=== PATIENT | female | born 1990 | race American Indian/Alaskan Native ===

== ENCOUNTER 2019-04-11 17:56 | Emergency (ER) | payer SELFPAY ==
[2019-04-11] MEDS ORDERED: IBUPROFEN 600 MG TAB PO ONE ×2 (18:09→18:10)
[2019-04-11] MEDS ORDERED: ACETAMINOPHEN 325 MG TAB PO ONE (18:09)
--- NOTE | 2019-04-11 18:09 | Event Note ---
ED Screening Note ED Screening Note: sore throat that two days ago discomfort with swallowing she is able to tolerate PO intake and tolerate secretions nasal congestion generalized body aches occasional dry cough no v/d PMHx none no allergies to meds LNMP: a week ago This initial assessment/diagnostic orders/clinical plan/treatment(s) is/are subject to change based on patients health status, clinical progression and re- assessment by fellow clinical providers in the ED. Further treatment and workup at subsequent clinical providers discretion. Patient/guardian urged not to elope from the ED as their condition may be serious if not clinically assessed and managed. Initial orders include: rapid strep, rapid flu ibuprofen tylenol
[2019-04-11] MEDS ORDERED: ACETAMINOPHEN 325 MG TAB ONE (18:10)
[2019-04-11] MEDS ORDERED: SODIUM CHLORIDE 0.9% 1000 ML IV SOLN IV ONE (18:49)
--- NOTE | 2019-04-11 18:59 | Emergency Department Report ---
ED General Adult HPI - General Chief complaint: Sore Throat Stated complaint: FEVER,WEAKNESS,SORE THROAT Time Seen by Provider: 04/11/19 18:02 Source: patient Mode of arrival: Ambulatory Limitations: No Limitations - History of Present Illness Initial comments: 28-year-old female presents with complaint of sore throat and fever for the past 2 days. Patient denies any loss of consciousness. Patient denies any dysuria. Patient denies any vomiting. Patient states that she has not had anything to eat since Thursday. Patient states that she is been only able to keep down a minimal amount of liquids. Patient denies any hematemesis. Patient complains of body aches as well. Severity scale (0 -10): 10 - Related Data Previous Rx's Medication Instructions Recorded Last Taken Type Clindamycin [Clindamycin CAP] 300 mg PO Q8H 7 Days #21 cap 04/11/19 Unknown Rx HYDROcodone/ACETAMINOPHEN [Lortab 15 ml PO Q8HR #473 solution 04/11/19 Unknown Rx 10 mg-300 mg per 15 ML ORAL LIQ] Ibuprofen [Motrin 800 MG tab] 800 mg PO Q8HR PRN #20 tablet 04/11/19 Unknown Rx Allergies Allergy/AdvReac Type Severity Reaction Status Date / Time latex Allergy Hives Verified 04/11/19 17:59 ED Review of Systems ROS: Stated complaint: FEVER,WEAKNESS,SORE THROAT Other details as noted in HPI Constitutional: fever Eyes: denies: eye pain, eye discharge, vision change ENT: other (Sore throat) Respiratory: denies: cough, shortness of breath, wheezing Cardiovascular: denies: chest pain, palpitations Endocrine: no symptoms reported Gastrointestinal: denies: abdominal pain, nausea, diarrhea Genitourinary: denies: urgency, dysuria, discharge Musculoskeletal: denies: back pain, joint swelling, arthralgia Skin: denies: rash, lesions Neurological: denies: headache, weakness, paresthesias Psychiatric: denies: anxiety, depression Hematological/Lymphatic: denies: easy bleeding, easy bruising ED Past Medical Hx - Past Medical History Previous Medical History?: No - Surgical History Past Surgical History?: Yes Additional Surgical History: D&C - Social History Smoking Status: Never Smoker Substance Use Type: None - Medications Home Medications: Home Medications Medication Instructions Recorded Confirmed Last Taken Type Clindamycin [Clindamycin CAP] 300 mg PO Q8H 7 Days #21 cap 04/11/19 Unknown Rx HYDROcodone/ACETAMINOPHEN [Lortab 15 ml PO Q8HR #473 solution 04/11/19 Unknown Rx 10 mg-300 mg per 15 ML ORAL LIQ] Ibuprofen [Motrin 800 MG tab] 800 mg PO Q8HR PRN #20 tablet 04/11/19 Unknown Rx ED Physical Exam - General Limitations: No Limitations General appearance: alert, other (febrile; uncomfortable) - Head Head exam: Present: atraumatic, normocephalic - Eye Eye exam: Present: normal appearance - ENT ENT exam: Present: mucous membranes dry, other (bilateral tonsillar enlargement; uvula midline; no tonsillar exudate) - Neck Neck exam: Present: normal inspection. Absent: lymphadenopathy - Respiratory Respiratory exam: Present: normal lung sounds bilaterally. Absent: respiratory distress - Cardiovascular Cardiovascular Exam: Present: normal rhythm, tachycardia. Absent: systolic murmur, diastolic murmur, rubs, gallop - GI/Abdominal GI/Abdominal exam: Present: soft, normal bowel sounds. Absent: tenderness - Extremities Exam Extremities exam: Present: normal inspection - Back Exam Back exam: Present: normal inspection - Neurological Exam Neurological exam: Present: alert, oriented X3 - Psychiatric Psychiatric exam: Present: normal affect, normal mood - Skin Skin exam: Present: warm, dry, intact, normal color. Absent: rash ED Course Vital Signs 04/11/19 04/11/19 04/11/19 18:04 18:40 18:54 Temperature 102.6 F H Pulse Rate 134 H 124 H Respiratory 20 18 20 Rate Blood Pressure 119/66 O2 Sat by Pulse 100 99 Oximetry 04/11/19 04/11/19 04/11/19 19:00 19:16 19:30 Temperature Pulse Rate 124 H 116 H 119 H Respiratory 17 24 24 Rate Blood Pressure 117/70 117/69 117/69 O2 Sat by Pulse 99 Oximetry 04/11/19 04/11/19 04/11/19 19:50 20:29 20:30 Temperature Pulse Rate 115 H 118 H Respiratory 23 17 Rate Blood Pressure 119/68 113/61 O2 Sat by Pulse 98 100 99 Oximetry 04/11/19 04/11/19 04/11/19 20:48 21:00 21:16 Temperature Pulse Rate 118 H 111 H 113 H Respiratory 26 H 25 H 25 H Rate Blood Pressure 113/61 113/64 113/61 O2 Sat by Pulse 93 99 99 Oximetry 04/11/19 04/11/19 04/11/19 21:30 21:46 21:47 Temperature 99.0 F Pulse Rate 107 H 114 H Respiratory 20 24 Rate Blood Pressure 109/68 109/68 O2 Sat by Pulse 98 Oximetry ED Medical Decision Making - Lab Data Result diagrams: 04/11/19 19:00 04/11/19 19:00 - Medical Decision Making Patient received clindamycin 600 mg as well as 10 mg of Decadron while in emergency department. Patient also received a 30 cc/kg bolus of normal saline while emergency department. Patient's heart rate has improved. Patient's has a normal white count. Patient's urinalysis shows no evidence of infection. Patient CT of the neck shows no evidence of peritonsillar abscess. Patient has a chest x-ray shows no obvious evidence of acute infiltrate or consolidation. Patient to be treated as a tonsillitis with clindamycin therapy as well as Hycet therapy. Patient also likely has the presence of concomitant viral illness. Patient be discharged to follow-up with PCP. - Differential Diagnosis Viral illness; strep pharyngitis; tonsillitis; pneumonia; Critical care attestation.: If time is entered above; I have spent that time in minutes in the direct care of this critically ill patient, excluding procedure time. ED Disposition Clinical Impression: Viral illness, Tonsillitis Disposition: -01 TO HOME OR SELFCARE Is pt being admited?: No Does the pt Need Aspirin: No Condition: Stable Instructions: Tonsillitis (ED), Viral Syndrome (ED) Prescriptions: Clindamycin [Clindamycin CAP] 300 mg PO Q8H 7 Days #21 cap HYDROcodone/ACETAMINOPHEN [Lortab 10 mg-300 mg per 15 ML ORAL LIQ] 15 ml PO Q8HR #473 solution Ibuprofen [Motrin 800 MG tab] 800 mg PO Q8HR PRN #20 tablet PRN Reason: Pain, Moderate (4-6) Time of Disposition: 22:34 Print Language: DANISH
[2019-04-11 19:30] LABS: Hematocrit 34.7 % (30.3-42.9); Hemoglobin 11.4 gm/dl (10.1-14.3); Mean Corpuscular HGB Conc 33 % (30-34); Mean Corpuscular Volume 84 fl (79-97); Platelet Count 190 K/mm3 (140-440); Red Blood Count 4.13 M/mm3 (3.65-5.03); Red Cell Distribution Width 13.2 % (13.2-15.2)
[2019-04-11] MEDS ORDERED: CLINDAMYCIN 600 MG/50 mL 600 MG/50 ML BAG IV ONE (19:35)
[2019-04-11] MEDS ORDERED: dexAMETHasone 20 MG/5 ML VIAL IV ONE (19:35)
[2019-04-11 19:48] LABS: Alanine Aminotransferase 19 units/L (7-56); BUN/Creatinine Ratio 10; Blood Urea Nitrogen 7 mg/dL (7-17); Calcium 8.7 mg/dL (8.4-10.2); Hemolysis Index 0
[2019-04-11 20:13] LABS: Basophils % (Manual) 0 % (0.0-1.8); Eosinophils % (Manual) 0 % (0.0-4.3); Total Cells Counted 100
[2019-04-11 20:14] LABS: RBC Morphology Normal
--- NOTE | 2019-04-11 20:51 | Cat Scan Report ---
CT neck w con INDICATION / CLINICAL INFORMATION: 28 years Female; sore throat with fever. TECHNIQUE: Contiguous thin cut axial images obtained through the neck following IV contrast. Sagittal and eubanks l reconstructions performed by the technologist. All CT scans at this location are performed using CT dose reduction for ALARA by means of automated exposure control. COMPARISON: None available. FINDINGS: MUCOSAL SPACE: The nasopharynx, oropharynx and vallecula, oral cavity and floor of mouth, hypopharynx , and larynx are grossly normal. No evidence of abscess formation seen. Parapharyngeal and retrophary ngeal spaces are normal. LYMPH NODES: No significant adenopathy appreciated. A few borderline size lymph nodes identified, whi ch are presumably reactive. SALIVARY GLANDS: Parotid, submandibular, and visualized sublingual glands are within normal limits. THYROID GLAND: Unremarkable. PARANASAL SINUSES: Mucous retention cyst/polyps seen in both maxillary antra. The left frontal sinus is hypoplastic. SPINE: No significant abnormality of the cervical spine appreciated. Minimal scoliosis of the cervico thoracic spine noted. VASCULAR STRUCTURES: Vascular structures are grossly normal in appearance. Poor dentition noted. Surrounding soft tissues are otherwise grossly normal. IMPRESSION: 1. No signs of abscess formation appreciated. Signer Name: Torey Mcgregor MD, III Signed: 04/11/2019 8:47 PM Workstation Name: [email or web address]
--- NOTE | 2019-04-11 22:00 | XRay Report ---
CHEST 2 VIEWS INDICATION / CLINICAL INFORMATION: suspected sepsis. COMPARISON: None available. FINDINGS: SUPPORT DEVICES: None. HEART / MEDIASTINUM: No significant abnormality. LUNGS / PLEURA: No significant pulmonary or pleural abnormality. No pneumothorax. Minimal left basila r density is likely atelectasis. ADDITIONAL FINDINGS: Scoliosis is seen convex to the left. IMPRESSION: 1. No acute findings. Signer Name: Aramis Feldman MD Signed: 04/11/2019 9:55 PM Workstation Name: [id number]
[2019-04-11 22:09] LABS: Bacteria,Urine 1+ /HPF (Negative); Bilirubin,Urine NEG (Negative); Blood,Urine NEG (Negative); Color,Urine Straw (Yellow); Mucus,Urine FEW /HPF; Protein,Urine <15 mg/dL mg/dL (Negative); RBC,Urine < 1.0 /HPF (0.0-6.0); Urobilinogen,Urine < 2.0 mg/dL (<2.0)
[2019-04-11 23:32] VITALS: BP 106/58
== END 2019-04-11 23:32 | disposition home or self-care (01) ==
LOC: ED 17:56
DX: B34.9 Viral infection, unspecified (principal); J03.80 Acute tonsillitis due to other specified organisms; Z91.041 Radiographic dye allergy status
CPT/HCPCS: 36415; 70491; 71046; 80053; 81001; 82140; 84703; 85007; 85025; 87040; 87116; 87400; 87430; 96365; 96375; 99284; J1100; J7030; Q9967

== ENCOUNTER 2021-10-11 23:26 | Emergency (ER) | payer OTHER ==
[2021-10-11 23:33] VITALS: BP 126/86
--- NOTE | 2021-10-12 00:20 | XRay Report ---
Cervical spine 3 views INDICATION: Neck pain IMPRESSION: No acute findings. Signer Name: Hardik Galindo MD Signed: 10/12/2021 12:16 AM Workstation Name: [id number]
--- NOTE | 2021-10-12 00:21 | XRay Report ---
Lumbar spine 3 views INDICATION: Low back pain IMPRESSION: Broad dextrocurvature of the lumbar spine. No fracture or subluxation. No severe neural f oraminal stenosis appreciated. Signer Name: Hardik Galindo MD Signed: 10/12/2021 12:17 AM Workstation Name: [employer]
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
== END 2021-10-12 06:35 | disposition home or self-care (01) ==
LOC: ED 23:26
DX: M54.2 Cervicalgia (principal); M54.9 Dorsalgia, unspecified; V89.2XXA Person injured in unspecified motor-vehicle accident, traffic, initial encounter; Y93.89 Activity, other specified; Y92.89 Other specified places as the place of occurrence of the external cause; Y99.8 Other external cause status
CPT/HCPCS: 72040; 72100; 99283